=== PATIENT | male | born 1975 | race Caucasian/White ===

== ENCOUNTER 2019-05-15 04:37 | Emergency (ER) | payer SELFPAY ==
[~2019-05-15] VITALS: Ht 188 cm; Wt 54.5 kg
[2019-05-15 04:39] VITALS: Ht 188 cm; Wt 54.5 kg
[2019-05-15 07:17] VITALS: BP 120/78
== END 2019-05-15 07:19 | disposition home or self-care (01) ==
LOC: D.ER 04:37
DX: S20.212A Contusion of left front wall of thorax, initial encounter (principal); S20.211A Contusion of right front wall of thorax, initial encounter; X58.XXXA Exposure to other specified factors, initial encounter; Y93.89 Activity, other specified; Y92.89 Other specified places as the place of occurrence of the external cause